=== PATIENT | female | born 2000 | race Caucasian/White ===

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

== ENCOUNTER → 2018-07-10 | Outpatient (REF) | payer OTHER ==
[~2018-07-10] MED LIST: CEPH500C24 PO; ETHI1TAB3 PO; HYDR-653 PO; ONDA4TAB PO
== END ==
LOC: ZZSTITCHES 17:50
PROVIDERS: ATTEND Physician Assistant
DX: N39.0 Urinary tract infection, site not specified (principal)
CPT/HCPCS: 87088